=== PATIENT | male | born 1960 | race Caucasian/White ===

== ENCOUNTER 2019-08-25 19:24 | Observation (INO) ==
[2019-08-25 20:00] LABS: Basophils % 0.6 %; Eosinophils # 0.2 K/mcL (0.0-0.6); Eosinophils % 2.8 %; Hemoglobin 14.6 g/dL (12.9-16.9); Immature Granulocytes % 0.1 % (0-4); Lymphocytes # 1.5 K/mcL (0.6-4.6); Lymphocytes % 20.2 %; Mean Corpuscular Hemoglobin 29.9 pg (28.0-33.3); Mean Corpuscular Volume 87.9 fL (83.0-100.0); Mean Platelet Volume 9.6 fL (9.4-12.4); Monocytes # 0.3 K/mcL (0.0-1.3); Monocytes % 3.9 %; Neutrophils # 5.3 K/mcL (1.6-8.9); Platelet Count 103 K/mcL (140-400); Red Blood Count 4.89 M/mcL (4.19-5.50); Segmented Neutrophils % 72.4 %; White Blood Count 7.3 K/mcL (4.3-11.1)
[2019-08-25 20:12] LABS: Prothrombin Time 13.1 Seconds (9.4-12.1)
[2019-08-25 20:13] LABS: Activated Partial Thrombo Time 31.6 Seconds (26.0-36.0); INR 1.2
[2019-08-25 20:18] LABS: BUN/Creatinine Ratio 15 (6-26); Blood Urea Nitrogen 18 mg/dL (6-20); Calcium 9.6 mg/dL (8.6-10.3); Carbon Dioxide 24 mEq/L (23-29); Chloride 104 mEq/L (98-107); Glucose 214 mg/dL (70-105); Osmolality,Calculated 298 (280-300); Potassium 3.7 mEq/L (3.5-5.1); Sodium 140 mEq/L (136-145); eGFR For African Americans > 60 (> 60); eGFR For Non-African Americans > 60 (> 60)
[2019-08-25 20:19] LABS: Troponin I < 0.03 ng/mL (< 0.04)
[2019-08-25] MEDS ORDERED: Insulin DETEMIR 100 UNIT/ML per UNIT SQ ONE (21:00)
[2019-08-25] MEDS ORDERED: Ondansetron ODT 4 MG TAB.RAPDIS SL PRN (23:14)
[2019-08-25] MEDS ORDERED: D5% in Water 1,000 ML IVC PRN (23:14)
[2019-08-25] MEDS ORDERED: Naloxone 0.4 MG/ML INJ IVP PRN (23:14)
[2019-08-25] MEDS ORDERED: *HR* Dextrose 50 % in Water (Syg) 50 ML SYRINGE IVP PRN (23:14)
[2019-08-25] MEDS ORDERED: Nitroglycerin 0.4 MG TAB.SUBL SL PRN (23:14)
[2019-08-25] MEDS ORDERED: Dextrose Gel 15 GM/37.5 ML TUBE PO PRN ×2 (23:14)
[2019-08-26] MEDS: *HR* Rivaroxaban 15 MG TABLET PO SCH ×2 (00:20→08:37)
[2019-08-26] MEDS ORDERED: *HR* Metformin 500 MG TABLET PO SCH (08:00)
[2019-08-26] MEDS: Aspirin Enteric Coated 81 MG Tablet PO SCH (08:37)
[2019-08-26] MEDS: Insulin LISPRO 300 UNITS/3 ML VIAL SQ SCH ×3 (08:37→16:59)
[2019-08-26] MEDS: Lisinopril 20 MG TABLET PO SCH (08:37)
[2019-08-26] MEDS ORDERED: Insulin DETEMIR 100 UNIT/ML X5UNITS SQ SCH (21:00)
[2019-08-27 06:40] VITALS: BP 116/69
[2019-08-27 06:49] LABS: Chol/HDL Ratio 5.2 (0-4.9)
[2019-08-27] MEDS: Insulin LISPRO 300 UNITS/3 ML VIAL SQ SCH (07:22)
[2019-08-27] MEDS ORDERED: *HR* Dextrose 50 % in Water (Vial) 50 ML VIAL IVP PRN (08:00)
[2019-08-27] MEDS: Lisinopril 20 MG TABLET PO SCH (08:32)
[2019-08-27] MEDS: Aspirin Enteric Coated 81 MG Tablet PO SCH (08:32)
[2019-08-27] MEDS ORDERED: Venlafaxine XR (24 HR) 37.5 MG CAP.ER.24H PO SCH (09:00)
[2019-08-27] MEDS ORDERED: *HR* Rivaroxaban 10 MG TABLET PO SCH (17:00)
== END 2019-08-27 11:15 | disposition home or self-care (01) ==
LOC: INPPIK 19:24 → EMEROOPIK 19:24 → INPPIK 21:21
PROVIDERS: ADMIT Family Medicine; ATTEND Family Medicine